=== PATIENT | male | born 1990 | race Caucasian/White ===

== ENCOUNTER 2017-07-11 15:20 | Emergency (ER) | payer MEDICAID, OTHER ==
[~2017-07-11] VITALS: Ht 167.6 cm; Wt 81.8 kg
[~2017-07-11 15:20] MED LIST: BUPR75 PO; LURA40 PO; SERT50TA12 PO
[2017-07-11] MEDS ORDERED: BENZ1TAB10 PO (15:26)
[2017-07-11] MEDS ORDERED: OLAN10TA3 PO (15:26)
[2017-07-11] MEDS ORDERED: DIVA500T52 PO (15:26)
[2017-07-11] MEDS ORDERED: METO25 PO (15:26)
[2017-07-11] MEDS ORDERED: FLUP10 PO (15:26)
[2017-07-11 15:54] LABS: BASOPHILS % (AUTO) 0.4 % (0.0-2.0); EOSINOPHILS % (AUTO) 0.2 % (1.0-6.0); HEMATOCRIT 38.5 % (41-53); HEMOGLOBIN 13.2 g/dL (13.5-17.5); LYMPHOCYTES # (AUTO) 1.6 K/uL (1.0-4.8); LYMPHOCYTES % (AUTO) 13.7 % (22.0-44.0); MEAN CORPUSCULAR HEMOGLOBIN 30.8 pg (26.0-34.0); MEAN CORPUSCULAR HGB CONC 34.4 G/dL (31.0-37.0); MEAN CORPUSCULAR VOLUME 90 fL (80-100); MONOCYTES # (AUTO) 0.8 K/uL (0.1-1.0); NEUTROPHILS # (AUTO) 9.1 K/uL (1.8-7.7); NEUTROPHILS % (AUTO) 78.7 % (40.0-70.0); PLATELET COUNT (AUTO) 162 K/uL (150-450)
[2017-07-11 16:09] LABS: ANION GAP 9 mmol/L (8-16); CALCIUM, TOTAL 8.6 mg/dL (8.8-10.5); CARBON DIOXIDE 30 mmol/L (22-29); CHLORIDE 102 mmol/L (98-107); GLOMERULAR FILTR. RATE CALC > 60 mL/min (>60); GLUCOSE,RANDOM 104 mg/dL (70-110); POTASSIUM 3.8 mmol/L (3.5-5.1); SODIUM SERUM 141 mmol/L (136-145); UREA NITROGEN, BLOOD 19 mg/dL (7-18)
[2017-07-11] MEDS ORDERED: DIVA250T45 PO (16:12)
[2017-07-11] MEDS ORDERED: OLAN7.5T2 PO (16:12)
[2017-07-11 16:15] LABS: ALANINE AMINOTRANSFERASE 45 U/L (12-78); ALBUMIN 4.2 g/dL (3.4-5.0); ALKALINE PHOSPHATASE 62 U/L (46-116); ASPARTATE AMINOTRANSFERASE 18 U/L (15-37); BILIRUBIN,TOTAL 0.2 mg/dL (0.1-1.0); TOTAL PROTEIN, SERUM 7.9 g/dL (6.4-8.2)
[2017-07-11] MEDS ORDERED: LORazepam 2 MG TABLET PO ONE (16:15)
[2017-07-11] MEDS ORDERED: HALOPERIDOL 5 MG TABLET PO ONE (16:15)
[2017-07-12 01:42] VITALS: BP 108/61
== END 2017-07-12 02:30 | disposition home or self-care (01) ==
LOC: EMS 15:23
DX: F20.0 Paranoid schizophrenia (principal); R46.89 Other symptoms and signs involving appearance and behavior; J45.909 Unspecified asthma, uncomplicated
CPT/HCPCS: 36415; 80053; 85025; 99284; G0480; 94002

== ENCOUNTER 2022-12-23 21:07 | Emergency (ER) | payer OTHER ==
[~2022-12-23] VITALS: Ht 167.6 cm; Wt 90.0 kg
[~2022-12-23 21:07] MED LIST changes: +BENZ1TAB84 PO; -BUPR75 PO; +DIVA-85 PO; +FLUP10TA28 PO; -LURA40 PO; +METO25 PO; +OLAN7.5T22 PO; -SERT50TA12 PO
[2022-12-23 21:22] VITALS: TEMP 98.4
[2022-12-23] MEDS ORDERED: IBUPROFEN 800 MG TABLET PO ONE (23:30)
[2022-12-23 23:45] VITALS: BP 134/74; PULSE 79; RESP 16
== END 2022-12-24 04:25 | disposition home or self-care (01) ==
LOC: EMS 21:09
DX: S93.121A Dislocation of metatarsophalangeal joint of right great toe, initial encounter (principal); J45.909 Unspecified asthma, uncomplicated; F31.9 Bipolar disorder, unspecified; F20.9 Schizophrenia, unspecified; Z98.890 Other specified postprocedural states; W31.89XA Contact with other specified machinery, initial encounter; Y93.89 Activity, other specified; Y92.89 Other specified places as the place of occurrence of the external cause; Y99.8 Other external cause status
CPT/HCPCS: 28630; 99284; 73620-TC; 73630-TC; Z7502; Z7610

== ENCOUNTER 2023-07-11 20:49 | Emergency (ER) | payer OTHER ==
[~2023-07-11] VITALS: Ht 167.6 cm; Wt 90.0 kg
[2023-07-11 20:52] VITALS: TEMP 98.6
[2023-07-11] MEDS: LORazepam 1 MG TABLET PO ONE (23:17)
[2023-07-12 01:00] VITALS: BP 122/60; PULSE 81; RESP 16
== END 2023-07-12 01:48 | disposition home or self-care (01) ==
LOC: EMS 20:51
DX: F41.9 Anxiety disorder, unspecified (principal); J45.909 Unspecified asthma, uncomplicated; F31.9 Bipolar disorder, unspecified; F20.9 Schizophrenia, unspecified
CPT/HCPCS: 82962; 99283

== ENCOUNTER 2024-05-28 22:59 | Emergency (ER) | payer OTHER ==
[~2024-05-28] VITALS: Ht 172.7 cm; Wt 81.8 kg
[~2024-05-28 22:59] MED LIST changes: +BENZ-247 PO; -BENZ1TAB84 PO
[2024-05-28 23:29] VITALS: BP 135/88; PULSE 90; RESP 15; TEMP 99; O2SAT 100
[2024-05-29] MEDS: ACETAMINOPHEN 500 MG TABLET PO ONE (03:32)
== END 2024-05-29 06:00 | disposition home or self-care (01) ==
LOC: EMS 23:01
DX: F32.9 Major depressive disorder, single episode, unspecified (principal); F20.9 Schizophrenia, unspecified; J45.909 Unspecified asthma, uncomplicated; Z79.899 Other long term (current) drug therapy
CPT/HCPCS: 99283